=== PATIENT | male | born 1975 | race Asian ===

== ENCOUNTER 2023-10-28 22:42 | Emergency (ER) | payer OTHER ==
[~2023-10-28] VITALS: Ht 182.9 cm; Wt 120.0 kg
[2023-10-29] MEDS: ALBUTEROL SULF 2.5 MG/0.5ML(0.5%) NEB SOLN NEB ONE (00:04)
[2023-10-29] MEDS: IPRATROPIUM BROM 0.5 MG/2.5ML INH SOL NEB ONE (00:04)
[2023-10-29 00:31] LABS: COVID19 ANTIGEN SOFIA FIA NEGATIVE (NEGATIVE)
[2023-10-29 00:32] LABS: Rapid Influenza A Negative (Negative); Rapid Influenza B Negative (Negative)
[2023-10-29] MEDS ORDERED: LORA10CA PO (00:50)
[2023-10-29] MEDS ORDERED: BENZ100C97 PO (00:50)
[2023-10-29] MEDS ORDERED: AZIT500T66 PO (00:50)
[2023-10-29] MEDS: AZITHROMYCIN 250 MG TAB PO ONE (01:10)
[2023-10-29] MEDS: DexAMETHasone SOD PHOS 10MG/1ML VIAL INJ IM ONE (01:11)
[2023-10-29 01:24] VITALS: BP 145/89; PULSE 100; RESP 18; TEMP 98.8; O2SAT 93
== END 2023-10-29 01:25 | disposition home or self-care (01) ==
LOC: EDSEX 22:42 → ER 22:42 → EDBD 22:42 → ER 10-29 01:25
DX: J18.9 Pneumonia, unspecified organism (principal); Z20.822 Contact with and (suspected) exposure to COVID-19
CPT/HCPCS: 36415; 71045; 87426; 87804; 94640; 96372; 99284; J1100; J7644

== ENCOUNTER 2025-08-20 09:37 | Emergency (ER) | payer OTHER ==
[~2025-08-20] VITALS: Ht 180.3 cm; Wt 113.6 kg
[~2025-08-20 09:37] MED LIST: AZIT500T66 PO; BENZ100C97 PO; LORA10CA PO
--- NOTE | 2025-08-20 10:04 | ED.PDOC ---
History of Present Illness HPI Comments 49 year old male presents to the ED via EMS with a chief complaint of generalized body pain onset 3 days Patient states he has been experiencing muscle spasms for the past 3 days, as well as joint pain, including elbows, wrists, knees, ankles. He has taken Ibuprofen 800 mg with no relief of symptoms. Denies fall, trauma, injury, fever, chills, nausea, vomiting, abdominal pain, diarrhea, headache, dizziness, blurred vision, chest pain, shortness of breath, numbness/tingling, dysuria, hematuria, hematemesis, melena, blood in stool. No other symptoms or modifying factors present at this time. Chief Complaint: Body Pain Time Seen by MD: 09:55 Reviewed Notes: Medications, Allergies Allergies: Coded Allergies: NO KNOWN ALLERGIES (Unverified , 10/28/23) Home Meds Active Scripts Benzonatate (Benzonatate) 100 Mg Cap, 1 CAP PO TID, #30 CAP Prov:KIM LOPEZ PAC 10/29/23 Loratadine (Claritin) 10 Mg Cap, 10 MG PO DAILY for 10 Days, #10 CAP Prov:KIM LOPEZ PAC 10/29/23 Azithromycin (Azithromycin) 500 Mg Tab, 1 TAB PO DAILY for 4 Days, #4 TAB Prov:KIM LOPEZ MERGED WITH [facility] 10/29/23 Information Source: Patient, Emergency Med Personnel Mode of Arrival: EMS Severity: Moderate Timing: Days Duration: Since onset Prehospital treatment: None Past Medical History PAST MEDICAL HISTORY: Denies Surgical History: Denies all surgeries Family History Family History: Reviewed,noncontributory to illness, No family hx of Cancer, No family hx of DM, No family hx of Heart ruma, No family hx of HTN, No family hx ofKidney ruma, No family hx of Liver ruma, No family hx of Lung ruma, No family hx of Stroke Social History Smoker: Non-Smoker Alcohol: Denies ETOH Use Drugs: Denies Drug Use Lives In: Home Constitutional: denies: chills, diaphoresis, fatigue, fever, malaise, sweats, weakness, others EENTM: denies: blurred vision, double vision, ear bleeding, ear discharge, ear drainage, ear pain, ear ringing, eye pain, eye redness, hearing loss, mouth pain, mouth swelling, nasal discharge, nose bleeding, nose congestion, nose pain, photophobia, tearing, throat pain, throat swelling, voice changes, others Respiratory: denies: cough, hemoptysis, orthopnea, SOB at rest, shortness of breath, SOB with excertion, stridor, wheezing, others Cardiovascular: denies: chest pain, dizzy spells, diaphoresis, Dyspnea on exertion, edema, irregular heart beat, left arm pain, lightheadedness, palpitations, PND, syncope, others Gastrointestinal: denies: abdomen distended, abdominal pain, blood streaked bowels, constipated, diarrhea, dysphagia, difficulty swallowing, hematemesis, melena, nausea, poor appetite, poor fluid intake, rectal bleeding, rectal pain, vomiting, others Genitourinary: denies: burning, dysuria, flank pain, frequency, hematuria, incontinence, penile discharge, penile sore, pain, testicle pain, testicle swelling, urgency, others Neurological: denies: dizziness, fainting, headache, left sided numbness, left sided weakness, numbness, paresthesia, pre-existing deficit, right sided numbness, right sided weakness, seizure, speech problems, tingling, tremors, weakness, others Musculoskeletal: reports: joint pain, muscle pain, others (muscle spasms); denies: back pain, gout, joint swelling, muscle stiffness, neck pain Integumetry: denies: bruises, change in color, change in hair/nails, dryness, laceration, lesions, lumps, rash, wounds, others Allergic/Immunocompromised: denies: Difficulty Healing, Frequent Infections, Hives, Itching, others Hematologic/Lymphatic: denies: anemia, blood clots, easy bleeding, easy bruising, swollen glands, others Endocrine: denies: excessive hunger, excessive sweating, excessive thirst, excessive urination, flushing, intolerance to cold, intolerance to heat, unexplained weight gain, unexplained weight loss, others Psychiatric: denies: anxiety, bipolar disorder, depression, hopeless, panic disorder, schizophrenia, sleepless, suicidal, others All Other Systems: Reviewed and Negative Physical Exam General Appearance: Moderate Distress, Normal HEENT: Normal ENT Inspection, Pharynx Normal, TMs Normal Neck: Full Range of Motion, Non-Tender, Normal, Normal Inspection Respiratory: Chest Non-Tender, Lungs Clear, No Accessory Muscle Use, No Respiratory Distress, Normal Breath Sounds Cardiovascular: No Edema, No JVD, No Murmur, No Gallop, Normal Peripheral Pulses, Regular Rate/Rhythm Breast Exam: Deferred Gastrointestinal: No Organomegaly, Non Tender, No Pulsatile Mass, Normal Bowel Sounds, Soft Genitalia: Deferred Pelvic: Deferred Rectal: Deferred Extremities: No calf tenderness, Normal capillary refill, Normal inspection, Normal range of motion, Non-tender, No pedal edema Musculoskeletal : Apperance: Normal Neurologic: Alert, product designer II-XII nml as Tested, No Motor Deficits, Normal Affect, Normal Mood, No Sensory Deficits Cerebellar Function: NOT DONE Reflexes: NOT DONE Skin: Dry, Normal Color, Warm Peripheral Pulses: 3+ Radial (R), 3+ Radial (L) Lymphatic: No Adenopathy Was a procedure done? Was a procedure done?: No Differential Dx Considerations may include: Anemia Electrolyte imbalance X-Ray, Labs, Meds, VS Vital Signs Date Time Temp Pulse Resp B/P (MAP) Pulse Ox O2 Delivery O2 Flow Rate FiO2 08/20/25 13:49 19 99 Room Air* 0 21 08/20/25 13:47 98.2 80 19 136/88 (104) 99 98.2 08/20/25 10:03 97.5 86 20 111/75 (87) 100 97.5 08/20/25 09:42 98.9 81 15 149/90 100 98.9 Lab Test 08/20/25 11:18 08/20/25 10:18 Range/Units Urine Color Light-yellow Yellow Urine Clarity Clear Clear Urine pH 5.0 5.0-9.0 Urine Specific [place] 1.008 1.001-1.035 Urine Protein Negative Negative Urine Ketones Negative Negative Urine Blood Negative Negative /uL Urine Nitrite Negative Negative Urine Bilirubin Negative Negative Urine Urobilinogen Normal Negative mg/dL Urine Leukocyte Esterase Negative Negative /uL Urine RBC None seen 0 - 3 /hpf Urine Microscopic WBC 1 0-3 /HPF Urine Squamous Epithelial Cells Few <5 /hpf Urine Bacteria Few H None Seen /hpf Urine Glucose 2+ H Normal mg/dL White Blood Count 14.0 H 4.4-10.8 10^3/uL Red Blood Count 4.21 L 4.5-5.90 10^6/uL Hemoglobin 12.1 L 13.5-17.5 g/dL Hematocrit 36.4 L 41.0-53.0 % Mean Corpuscular Volume 86.4 80.0-100.0 fL Mean Corpuscular Hemoglobin 28.8 28.0-32.0 pg Mean Corpuscular Hemoglobin Concent 33.4 32.0-36.0 g/dL Red Cell Distribution Width 13.9 11.8-14.3 % Platelet Count 349 140-450 10^3/uL Mean Platelet Volume 6.6 L 6.9-10.8 fL Neutrophils (%) (Auto) 77.8 37.0-80.0 % Lymphocytes (%) (Auto) 14.1 10.0-50.0 % Monocytes (%) (Auto) 7.0 0.0-12.0 % Eosinophils (%) (Auto) 0.3 0.0-7.0 % Basophils (%) (Auto) 0.8 0.0-2.0 % Neutrophils # (Auto) 10.9 H 1.6-8.6 10 ^3/uL Lymphocytes # (Auto) 2.0 0.4-5.4 10 ^3/uL Monocytes # (Auto) 1.0 0-1.3 10 ^3/uL Eosinophils # (Auto) 0 0-0.8 10 ^3/uL Basophils # (Auto) 0.1 0-0.2 10 ^3/uL Nucleated Red Blood Cells 0.0 % Sodium Level 130 L 136-145 mmol/L Potassium Level 3.9 3.5-5.1 mmol/L Chloride Level 101 98-107 mmol/L Carbon Dioxide Level 20 20-31 mmol/L Anion Gap 9 5-15 Blood Urea Nitrogen 44 H 9-23 mg/dL Creatinine 2.42 H 0.700-1.30 mg/dL Glomerular Filtration Rate Calc 32 >90 mL/min BUN/Creatinine Ratio 18.2 10.0-20.0 Serum Glucose 114 H 74-106 mg/dL Calcium Level 9.2 8.7-10.4 mg/dL Current Medications Medications (Trade) Dose Ordered Sig/Figueroa Route Start Time Stop Time Status Last Admin Sodium Chloride 1,000 ml @ 1,000 mls/hr Q1H ONCE IV 08/20/25 11:45 08/20/25 12:44 DC 08/20/25 11:55 Ceftriaxone Sodium 50 ml @ 100 mls/hr ONCE ONCE IV 08/20/25 11:45 08/20/25 12:14 DC 08/20/25 12:10 Azithromycin 250 ml @ 125 mls/hr ONCE ONCE IV 08/20/25 11:45 08/20/25 13:44 DC 08/20/25 13:24 Patient alert. Came in because of generalized body aches. States that he is unable to ambulate. Vitals stable. Establish intravenous access. Was given fluids. Kidney function elevated. Continue monitoring. [facility] approved ER visit [id number]. Time of 1ST Reevaluation: 10:25 Reevaluation 1ST: Unchanged Patient Education/Counseling: Diagnosis, Treatment, Prognosis Family Education/Counseling: No Family Present SEPSIS Sepsis Screen Date sepsis recognized/suspect: Aug 20, 2025 Time Sepsis recognized/suspect: 946 Recent Procedure: No On Antibiotic Therapy: No Respiratory Rate >20: No Heart Rate >90: No Temp<36 C (96.8 F) or >38.3 C: No SBP <90 or MAP <65 mmHG: No New Acute Mental Status Change: No Is the patient on CPAP, BIPAP,: No Physician Orders Chest Portable (08/20/25 11:39) Vital Signs Date Time Temp Pulse Resp B/P (MAP) Pulse Ox O2 Delivery O2 Flow Rate FiO2 08/20/25 13:49 19 99 Room Air* 0 21 08/20/25 13:47 98.2 80 19 136/88 (104) 99 98.2 08/20/25 10:03 97.5 86 20 111/75 (87) 100 97.5 08/20/25 09:42 98.9 81 15 149/90 100 98.9 Laboratory Tests Test 08/20/25 10:18 White Blood Count 14.0 10^3/uL (4.4-10.8) H Medications Medications Dose Ordered Sig/Figueroa Route Start Time Stop Time Status Last Admin Dose Admin Azithromycin 250 ml @ 125 mls/hr ONCE ONCE IV 08/20/25 11:45 08/20/25 13:44 DC 08/20/25 13:24 Ceftriaxone Sodium 50 ml @ 100 mls/hr ONCE ONCE IV 08/20/25 11:45 08/20/25 12:14 DC 08/20/25 12:10 Sodium Chloride 1,000 ml @ 1,000 mls/hr Q1H ONCE IV 08/20/25 11:45 08/20/25 12:44 DC 08/20/25 11:55 Departure 1 Departure Time of Disposition: 11:39 Impression: Primary Impression: Acute tubular necrosis Additional Impression: Pneumonitis Disposition: ADMITTED INPATIENT Admit to: Med Surg Condition: Guarded Critical Care Note Critical Care Time?: No Stability Stability form required: No Heart Score Heart Score: Heart Score Response (Comments) Value History N/A 0 EKG N/A 0 Age N/A 0 Risk Factors N/A 0 Troponin N/A 0 Total 0 I personally scribed for LOC KRUSE MD ([email or web address]) on 08/20/25 at 10:04. Electronically submitted by Ileana Tripathi ([email or web address]). LOC KRUSE MD Aug 20, 2025 10:04
[2025-08-20 10:27] LABS: Hematocrit 36.4 % (41.0-53.0); Hemoglobin 12.1 g/dL (13.5-17.5); Mean Corpuscular Hemoglobin 28.8 pg (28.0-32.0); Mean Corpuscular Volume 86.4 fL (80.0-100.0); Nucleated Red Blood Cells % 0.0 %
[2025-08-20 10:35] LABS: Chloride 101 mmol/L (98-107); Potassium 3.9 mmol/L (3.5-5.1)
[2025-08-20 10:36] LABS: Anion Gap 9 (5-15)
[2025-08-20 10:37] LABS: Calcium 9.2 mg/dL (8.7-10.4)
[2025-08-20 10:41] LABS: BUN/Creatinine Ratio 18.2 (10.0-20.0)
[2025-08-20 10:46] LABS: Blood Urea Nitrogen 44 mg/dL (9-23); Carbon Dioxide 20 mmol/L (20-31); Glucose 114 mg/dL (74-106); Sodium 130 mmol/L (136-145)
[2025-08-20 11:43] LABS: Urine Protein, UAD Negative (Negative)
[2025-08-20] MEDS: SODIUM CHLORIDE 0.9% 1,000 ML IV ONE (11:55)
--- NOTE | 2025-08-20 12:28 | DVH ---
CHEST RADIOGRAPH Indication: sob Technique: Single frontal view of the chest was obtained COMPARISON: XY CHEST PORTABLE on DOS: 10/28/23 FINDINGS: Lines and Tubes: None Lungs: Increased interstital prominence. This may represent pulmonary vascular congestion and/or viral pneumonia. Pleura: No effusion.No pneumothorax. Cardiomediastinal contours: Unremarkable Bones: Unremarkable IMPRESSION: Increased interstital prominence. This may represent pulmonary vascular congestion and/or viral pneumonia.
[2025-08-20] MEDS: AZITHROMYCIN 500MG/250ML 250 ML IV ONE (13:24)
[2025-08-20 17:32] VITALS: BP 136/89; PULSE 83; RESP 20; TEMP 97.5; O2SAT 98
== END 2025-08-20 18:04 | disposition short-term general hospital (02) ==
LOC: EDBD 09:37 → ER 09:37
DX: N17.0 Acute kidney failure with tubular necrosis (principal); J18.9 Pneumonia, unspecified organism
CPT/HCPCS: 36415; 71045; 80048; 81001; 85025; 96365; 96367; 99285; J0456; J0696